=== PATIENT | male | born 2000 | race Caucasian/White ===

== ENCOUNTER 2022-11-22 22:38 | Emergency (ER) | payer OTHER ==
[2022-11-23] MEDS ORDERED: Ibuprofen 200 MG TAB ONE (00:51)
== END 2022-11-23 01:10 | disposition home or self-care (01) ==
LOC: CSHERS 22:38
DX: S93.401A Sprain of unspecified ligament of right ankle, initial encounter (principal); X50.1XXA Overexertion from prolonged static or awkward postures, initial encounter